=== PATIENT | female | born 1975 | race Two or more races ===

== ENCOUNTER 2017-02-04 15:46 | Emergency (ER) | payer MEDICAID ==
[~2017-02-04 15:46] MED LIST: ALPRAZOLAM0.25 M3 PO; AMBIEN5 M1 PO; ATIVAN0.5 M1 PO; GABAPENTIN100 M1 PO; IMITREX100 M2 PO; LEVORA-28 TABL1 EACH PO; METOPROLOL SUC100 M1 PO; MINIPRESS5 M1 PO; NAPROXEN500 M1 PO; NORCO 5-325 TA1 EACH PO; OLANZAPINE10 M1 PO; OMEPRAZOLE20 M3 PO; PORTIA-28 TABL1 EACH PO; PRILOSEC20 M1 PO; PROZAC20 M3 PO; RULOX SUSPENSI355 M2 PO; SERTRALINE HCL100 M5 PO; SUMATRIPTAN; TOPIRAMATE25 M3 PO; TRAZODONE HCL50 M1 PO; [UNRECOGNIZED DRUG - OTHER] PO
[2017-02-04] MEDS ORDERED: PROVENTIL HFA6.7 G1 INH (16:53)
[2017-02-04] MEDS ORDERED: RULOX SUSPENSI355 M2 PO (16:53)
[2017-02-04] MEDS ORDERED: LORATADINE10 M2 PO (16:54)
[2017-02-04] MEDS ORDERED: MAPAP500 M3 PO (16:54)
[2017-02-04] MEDS ORDERED: [UNRECOGNIZED DRUG - OTHER] PO (16:57)
[2017-02-04] MEDS ORDERED: IMITREX100 M2 PO (16:58)
[2017-08-16] MEDS ORDERED: NORCO 5-325 TA1 EACH PO (15:08)
[2017-08-16] MEDS ORDERED: PREDNISONE20 M1 PO (15:08)
== END 2017-02-04 18:35 ==
LOC: EDMED 15:46
DX: G43.909 Migraine, unspecified, not intractable, without status migrainosus (principal); J45.909 Unspecified asthma, uncomplicated; K21.9 Gastro-esophageal reflux disease without esophagitis; Z79.51 Long term (current) use of inhaled steroids; Z79.899 Other long term (current) drug therapy
CPT/HCPCS: J1200; J1885; J2765; J7030